=== PATIENT | female | born 1985 | race Asian ===

== ENCOUNTER 2017-07-18 16:55 | Emergency (ER) | payer BC ==
[~2017-07-18] VITALS: Ht 165.1 cm; Wt 49.9 kg
[~2017-07-18 16:55] MED LIST: AMOX200S PO; GENTAMICIN0.3 % OP; NYSTATIN100000 MG PO; TOBRAMYCIN0.3 % OP; VIT B-COMPLX100 MG IJ; [UNRECOGNIZED DRUG - OTHER] OR
[2017-07-18 18:50] LABS: PLATELET COUNT 159 K/uL (152-353)
[2017-07-18 19:00] LABS: POTASSIUM 4.9 mmol/L (3.6-5.2); SODIUM 134 mmol/L (136-145)
[2017-07-18 19:34] LABS: PARTIAL THROMBOPLASTIN TIME 23.3 SECONDS (24.5-33.6)
[2017-07-18 19:49] VITALS: BP 107/70; TEMP 98
== END 2017-07-18 19:50 | disposition home or self-care (01) ==
LOC: ED 16:55
DX: R00.0 Tachycardia, unspecified (principal)
CPT/HCPCS: 36415; 80053; 84443; 84484; 85027; 85610; 85651; 85730; 93005; 96361; 96374; 99284; J0153

== ENCOUNTER 2017-08-29 16:42 | Emergency (ER) | payer OTHER ==
[~2017-08-29] VITALS: Ht 165.1 cm; Wt 49.4 kg
[2017-08-29 17:12] LABS: PLATELET COUNT 224 K/uL (152-353)
[2017-08-29 17:22] LABS: POTASSIUM 3.5 mmol/L (3.6-5.2)
[2017-08-29 19:21] VITALS: BP 134/62; TEMP 98.1
== END 2017-08-29 19:24 | disposition home or self-care (01) ==
LOC: ED 16:42
PROVIDERS: Internal Medicine
DX: R00.0 Tachycardia, unspecified (principal); I45.81 Long QT syndrome
CPT/HCPCS: 36415; 80053; 82550; 84443; 84484; 85027; 93005; 96374; 99284; J0150; J0153

== ENCOUNTER 2019-04-10 19:12 | Emergency (ER) | payer OTHER ==
[~2019-04-10] VITALS: Ht 165.1 cm; Wt 49.9 kg
[2019-04-10 20:09] LABS: PLATELET COUNT 183 K/uL (152-353)
[2019-04-10 20:11] LABS: POTASSIUM 3.2 mmol/L (3.6-5.2); SODIUM 141 mmol/L (136-145)
[2019-04-10 20:35] LABS: PARTIAL THROMBOPLASTIN TIME 21.4 SECONDS (24.5-33.6)
[2019-04-10 21:11] VITALS: BP 96/63; TEMP 98
== END 2019-04-10 21:30 | disposition home or self-care (01) ==
LOC: ED 19:12
PROVIDERS: Family Medicine
DX: I47.1 Supraventricular tachycardia (principal)
CPT/HCPCS: 36415; 80053; 82550; 84484; 85027; 85610; 85730; 93005; 96360; 96375; 99285; J0153

== ENCOUNTER 2019-09-12 14:55 | Emergency (ER) | payer OTHER ==
[~2019-09-12] VITALS: Ht 165.1 cm; Wt 47.2 kg
[2019-09-12 15:34] LABS: PLATELET COUNT 164 K/uL (152-353)
[2019-09-12 15:43] LABS: SODIUM 139 mmol/L (136-145)
[2019-09-12] MEDS ORDERED: METO-837 PO (15:57)
[2019-09-12 17:40] VITALS: BP 105/64; TEMP 99.2
== END 2019-09-12 17:40 | disposition home or self-care (01) ==
LOC: ED 14:55
PROVIDERS: Emergency Medicine
DX: I47.1 Supraventricular tachycardia (principal); D72.828 Other elevated white blood cell count
CPT/HCPCS: 80053; 81000; 82550; 82553; 84484; 85027; 93005; 99284; J0153

== ENCOUNTER 2020-12-24 09:30 | Emergency (ER) | payer OTHER ==
[~2020-12-24] VITALS: Ht 165.1 cm; Wt 47.2 kg
[~2020-12-24 09:30] MED LIST changes: +METO-837 PO
[2020-12-24 10:05] VITALS: TEMP 98
[2020-12-24 10:55] VITALS: BP 108/68
== END 2020-12-24 10:54 | disposition home or self-care (01) ==
LOC: ED 09:37
DX: I47.1 Supraventricular tachycardia (principal)
CPT/HCPCS: 93005; 96360; 96374; 99284; J0153

== ENCOUNTER 2021-06-13 14:26 | Emergency (ER) | payer OTHER ==
[~2021-06-13] VITALS: Ht 165.1 cm; Wt 47.6 kg
[2021-06-13 15:25] LABS: POTASSIUM 3.5 mmol/L (3.6-5.2); SODIUM 143 mmol/L (136-145)
[2021-06-13 15:30] LABS: PLATELET COUNT 159 K/uL (152-353)
[2021-06-13 15:38] LABS: PARTIAL THROMBOPLASTIN TIME 25.2 SECONDS (24.5-33.6)
[2021-06-13 17:30] VITALS: BP 107/71
== END 2021-06-13 17:35 | disposition home or self-care (01) ==
LOC: ED 14:26
PROVIDERS: Family Medicine
DX: I47.1 Supraventricular tachycardia (principal); R07.89 Other chest pain
CPT/HCPCS: 80053; 82550; 84484; 85027; 85610; 85730; 93005; 96374; 99285; J0153

== ENCOUNTER 2022-04-27 13:22 | Emergency (ER) | payer OTHER ==
[~2022-04-27] VITALS: Ht 165.1 cm; Wt 47.6 kg
[2022-04-27 13:22] VITALS: TEMP 98
[2022-04-27 14:54] LABS: POTASSIUM 4.2 mmol/L (3.6-5.2)
[2022-04-27 15:04] LABS: PLATELET COUNT 165 K/uL (152-353)
[2022-04-27 15:32] LABS: PARTIAL THROMBOPLASTIN TIME 25.2 SECONDS (24.5-33.6)
[2022-04-27 15:35] VITALS: BP 107/72
== END 2022-04-27 15:35 | disposition home or self-care (01) ==
LOC: ED 13:22
PROVIDERS: Family Medicine
DX: I47.1 Supraventricular tachycardia (principal)
CPT/HCPCS: 80053; 82550; 84484; 85027; 85610; 85730; 93005; 96374; 99284; J0153